=== PATIENT | female | born 2000 | race Caucasian/White ===

== ENCOUNTER 2019-12-03 07:52 | Inpatient (IN) ==
[2019-12-03] MEDS ORDERED: Ondansetron 4 MG/2 ML VIAL IVP PRN (08:14)
[2019-12-03] MEDS ORDERED: Metoclopramide 10 MG/2 ML VIAL IVP PRN (08:14)
[2019-12-03] MEDS ORDERED: Azithromycin 500 MG in 0.9 % Sodium Chloride 250 ML IVPB ONE (08:14)
[2019-12-03] MEDS ORDERED: Naloxone 0.4 MG/ML INJ IVP PRN (08:14)
[2019-12-03] MEDS ORDERED: Famotidine 20 MG/2 ML VIAL IVP PRN (08:14)
[2019-12-03] MEDS ORDERED: Ringers Solution, Lactated 1,000 ML IVC SCH (08:15)
[2019-12-03] MEDS ORDERED: Oxytocin 20 units/ LR 1000 mL 20 UNIT/1,000 ML BAG IVC ONE (09:00)
[2019-12-03] MEDS ORDERED: Oxytocin 20 units/ LR 1000 mL 20 UNIT/1,000 ML BAG IVC SCH (09:15)
[2019-12-03 10:09] LABS: Basophils # 0.1 K/mcL (0.0-0.2); Basophils % 0.5 %; Hematocrit 38.8 % (35.3-44.9); Hemoglobin 12.4 g/dL (11.5-15.4); Lymphocytes # 2.3 K/mcL (0.6-4.6); Lymphocytes % 15.5 %; Mean Corpuscular Hemoglobin 26.5 pg (28.0-33.3); Mean Corpuscular Volume 82.9 fL (83.0-100.0); Mean Platelet Volume 10.8 fL (9.4-12.4); Monocytes # 0.9 K/mcL (0.0-1.3); Monocytes % 5.8 %; Neutrophils # 11.5 K/mcL (1.6-8.9); Platelet Count 341 K/mcL (140-400); Red Blood Count 4.68 M/mcL (3.82-4.97); Red Cell Distribution Width 14.4 % (11.5-14.5); Segmented Neutrophils % 77.2 %; White Blood Count 14.9 K/mcL (4.3-11.1)
[2019-12-03 10:24] LABS: Amphetamine Screen,Urine Negative ng/mL (Cutoff=1000); Barbiturate Screen,Urine Negative ng/mL (Cutoff=200); Benzodiazepines Screen,Urine Negative ng/mL (Cutoff=200); Cannabinoid Screen,Urine Negative ng/mL (Cutoff = 50); Cocaine Screen,Urine Negative ng/mL (Cutoff= 300); Opiate Screen,Urine Negative ng/mL (Cutoff=300); Phencyclidine Screen,Urine Negative ng/mL (Cutoff=25)
[2019-12-03] MEDS ORDERED: EPHEDrine 50 MG/ML VIAL IVP PRN (11:38)
[2019-12-03] MEDS: Epidural Premix (fent/bupiv) 110 ML EP SCH ×2 (12:36→18:40)
[2019-12-03] MEDS ORDERED: Ropivacaine/PF 0.2% 20 ML VIAL ONE (18:29)
[2019-12-03] MEDS ORDERED: Lidocaine 1% 20 ML MDV ONE (22:52)
[2019-12-04] MEDS ORDERED: Ibuprofen 600 MG TABLET PO PRN (01:33)
[2019-12-04] MEDS ORDERED: Oxytocin 20 units/ LR 1000 mL 20 UNIT/1,000 ML BAG IVC SCH (02:18)
[2019-12-04] MEDS ORDERED: Measles/Mumps/Rubella Vacc 0.5 ML VIAL SQ PRN (02:18)
[2019-12-04] MEDS ORDERED: Acetaminophen 325 MG TABLET PO PRN (02:18)
[2019-12-04] MEDS ORDERED: Rho Immune Globulin 1,500 UNIT SYRINGE IM PRN (02:18)
[2019-12-04] MEDS: Ibuprofen 600 MG TABLET PO PRN ×2 (03:36→14:54)
[2019-12-04 06:52] LABS: Basophils % 0.2 %; Hematocrit 32.7 % (35.3-44.9); Immature Granulocytes % 0.6 % (0-4); Lymphocytes # 1.9 K/mcL (0.6-4.6); Lymphocytes % 10.3 %; Mean Corpuscular HGB Conc 32.1 g/dL (31.6-35.5); Mean Corpuscular Hemoglobin 26.9 pg (28.0-33.3); Mean Corpuscular Volume 83.6 fL (83.0-100.0); Mean Platelet Volume 10.9 fL (9.4-12.4); Monocytes # 1.2 K/mcL (0.0-1.3); Monocytes % 6.2 %; Neutrophils # 15.3 K/mcL (1.6-8.9); Platelet Count 318 K/mcL (140-400); Red Blood Count 3.91 M/mcL (3.82-4.97); Red Cell Distribution Width 14.3 % (11.5-14.5); Segmented Neutrophils % 82.7 %; White Blood Count 18.6 K/mcL (4.3-11.1)
[2019-12-04 07:05] LABS: Hemoglobin 10.5 g/dL (11.5-15.4)
[2019-12-04] MEDS ORDERED: Prenatal Vit/FA 1 EACH TABLET PO SCH (09:00)
[2019-12-04 21:01] VITALS: BP 116/74
== END 2019-12-04 22:10 | disposition home or self-care (01) | DRG 560 ==
LOC: 1NENULAB 07:52 → 1NENUOBS 12-04 02:10
PROVIDERS: ADMIT Obstetrics & Gynecology; ATTEND Student in an Organized Health Care Education/Training Program